=== PATIENT | male | born 1995 | race African-American/Black ===

== ENCOUNTER 2019-12-19 12:03 | Emergency (ER) | payer SELFPAY ==
[2019-12-19] MEDS ORDERED: Ibuprofen 200 MG TAB ONE (12:44)
[2019-12-19] MEDS ORDERED: Cephalexin 250 MG CAP ONE (12:44)
[2019-12-19] MEDS ORDERED: Sulfameth/Trimethoprim DS 800-160mg TAB ONE (12:44)
[2019-12-19] MEDS ORDERED: Adacel (T-DAP) 0.5 ML SYRINGE ONE (13:30)
== END 2019-12-19 14:52 | disposition home or self-care (01) ==
LOC: ERS 12:03
DX: L03.011 Cellulitis of right finger (principal)
CPT/HCPCS: 10060; 90471; 90715

== ENCOUNTER 2019-12-22 21:10 | Emergency (ER) | payer SELFPAY ==
[2019-12-22] MEDS ORDERED: cefTRIAXone\\ROCEPHIN 250 MG VIAL ONE (21:44)
[2019-12-22] MEDS ORDERED: Lidocaine 1% (PF) 30 ML VIAL ONE (21:44)
[2019-12-22] MEDS ORDERED: Azithromycin 250 MG TAB ONE (21:47)
[2019-12-25 19:13] LABS: Chlam.trachomatis by PCR,Urine Not Detected (NotDetected)
== END 2019-12-22 22:23 | disposition home or self-care (01) ==
LOC: ERS 21:10
DX: Z20.2 Contact with and (suspected) exposure to infections with a predominantly sexual mode of transmission (principal)
CPT/HCPCS: 87491; 87591; 96372; 99283; J0696; J2001

== ENCOUNTER 2019-12-26 11:55 | Emergency (ER) | payer SELFPAY | END 2019-12-26 12:50 | disposition home or self-care (01) | LOC: ERS 11:55 | DX: R36.9 Urethral discharge, unspecified (principal) | CPT/HCPCS: 99283 ==

== ENCOUNTER 2020-07-06 23:17 | Emergency (ER) | payer SELFPAY ==
[2020-07-06] MEDS ORDERED: cefTRIAXone\\ROCEPHIN 250 MG VIAL ONE (23:53)
[2020-07-06] MEDS ORDERED: Azithromycin 250 MG TAB ONE (23:53)
[2020-07-06] MEDS ORDERED: Lidocaine 1% PF 5 ML VIAL ONE (23:55)
[2020-07-06 23:59] LABS: Bacteria/HPF None Seen HPF (None Seen); Bilirubin Negative (Negative); Blood, Urine Negative (Negative); Clarity Turbid (Clear); Glucose, Urine (Dipstick) Normal (Negative); Ketone, Urine Trace mg/dL (Negative); Leukocyte 500 Leu/uL (Negative); Nitrite Negative (Negative); Protein, Urine (Dipstick) 30 mg/dL (Neg-Trace); RBC/HPF 0-3 HPF (0-3); Specific Gravity, Urine 1.041 (1.002-1.036); Squamous Epithelial None Seen HPF (0-3); WBC/HPF Greater than 50 HPF (0-3)
[2020-07-07 22:43] LABS: Chlam.trachomatis by PCR,Urine Not Detected (NotDetected)
== END 2020-07-07 00:08 | disposition home or self-care (01) ==
LOC: ERS 23:17
DX: A64 Unspecified sexually transmitted disease (principal)
CPT/HCPCS: 81003; 81015; 87491; 87591; 96372; 99283; J0696

== ENCOUNTER 2020-08-15 11:03 | Emergency (ER) | payer SELFPAY ==
[2020-08-15] MEDS ORDERED: Ondansetron ODT 4 MG TAB ONE ×2 (11:28)
== END 2020-08-15 13:03 | disposition home or self-care (01) ==
LOC: ERS 11:03
DX: R11.2 Nausea with vomiting, unspecified (principal)
CPT/HCPCS: 99283; Q0162

== ENCOUNTER 2021-03-06 12:26 | Emergency (ER) | payer SELFPAY | END 2021-03-06 14:06 | disposition home or self-care (01) | LOC: ERS 12:26 | DX: N34.1 Nonspecific urethritis (principal); F17.210 Nicotine dependence, cigarettes, uncomplicated | CPT/HCPCS: 87491; 87591; 96372; 99283; J0696; J2001 ==